=== PATIENT | female | born 1940 | race Hispanic/Latino ===

== ENCOUNTER → 2017-06-13 | Outpatient (CLI) | payer OTHER, MEDICARE ==
[~2017-06-13] MED LIST: REGADENOSON 0.4 MG/5 ML PF SYG IVP ONE; REGADENOSON 0.4 MG/5 ML PF SYG IVP SCH
== END ==
LOC: SHCH 06-12 15:23
PROVIDERS: ATTEND Internal Medicine Cardiovascular Disease
DX: Z01.810 Encounter for preprocedural cardiovascular examination (principal); R94.31 Abnormal electrocardiogram [ECG] [EKG]; I10 Essential (primary) hypertension
CPT/HCPCS: 78452; 93017; 93306; 96374; A9500 ×2; J2785

== ENCOUNTER → 2017-06-13 | Outpatient (CLI) | payer OTHER, MEDICARE | END | disposition home or self-care (01) | LOC: OIH 11:30 | PROVIDERS: ATTEND Internal Medicine Cardiovascular Disease | DX: Z01.818 Encounter for other preprocedural examination (principal); I10 Essential (primary) hypertension; R94.31 Abnormal electrocardiogram [ECG] [EKG] | CPT/HCPCS: 78452; 93017; 96374; A9500 ==